=== PATIENT | male | born 1960 | race Caucasian/White ===

== ENCOUNTER → 2020-03-30 08:43 | Outpatient (CLI) | payer OTHER, SELFPAY ==
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
== END ==
PROVIDERS: Referring Provider Nurse Practitioner; Visit Provider Nurse Practitioner
DX: M79.641 Pain in right hand (principal); S62.316A Displaced fracture of base of fifth metacarpal bone, right hand, initial encounter for closed fracture; X58.XXXA Exposure to other specified factors, initial encounter
CPT/HCPCS: 73110; 73130

== ENCOUNTER → 2020-04-03 08:24 | Outpatient (CLI) | payer OTHER, SELFPAY ==
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
== END ==
PROVIDERS: Referring Provider Orthopaedic Surgery Foot and Ankle Surgery; Visit Provider Orthopaedic Surgery Foot and Ankle Surgery
DX: S62.316A Displaced fracture of base of fifth metacarpal bone, right hand, initial encounter for closed fracture (principal)
CPT/HCPCS: 73200

== ENCOUNTER → 2020-07-26 07:23 | Outpatient (CLI) | payer OTHER, SELFPAY ==
--- NOTE | 2020-07-26 | DI.MRI.S_ITS ---
PROCEDURE: MR CERVICAL SPINE WO CON INDICATIONS: Cervicalgia TECHNIQUE: Noncontrast sagittal T1 spin echo and T2 fast spin echo, sagittal STIR, foraminal oblique sagittal T2 fast spin echo, and axial gradient echo or T2 fast spin echo through the cervical spine. COMPARISON: None. FINDINGS: Image quality: Excellent. Alignment and Curvature: Grade 1 retrolisthesis of C3 on C4. Bone Marrow: Multilevel degenerative endplate sclerosis and spurring. Diffuse facet arthropathy. No acute fracture identified. Diffuse moderate cervical spondylosis with severe disc space narrowing at C3-C4. Spinal Cord: Visualized spinal cord has normal size and signal. No cerebellar tonsillar herniation. Paraspinous Soft Tissues: No paravertebral masses. Prevertebral soft tissues are normal in thickness. C2-C3: No canal narrowing. Mild right foraminal stenosis. Mild to moderate left foraminal narrowing. C3-C4: Moderate to severe canal stenosis. Severe bilateral foraminal stenoses with nerve root compression. C4-C5: Minimal canal narrowing. Mild bilateral foraminal stenoses. C5-C6: Minimal canal narrowing. Mild to moderate right foraminal stenosis. Mild left foraminal narrowing. C6-C7: No canal stenosis. Moderate foraminal stenosis with nerve root compression. Severe left foraminal stenosis with nerve root compression. C7-T1: Minimal canal narrowing. Severe bilateral foraminal stenosis with nerve root compression on both sides. IMPRESSION: Diffuse cervical spondylosis and facet arthropathy with moderate to severe canal narrowing at C3-C4. Numerous, bilateral foraminal stenoses as detailed above by spinal level Grade 1 retrolisthesis of C3 on C4. Dictated by: Zain Stone M.D. on 07/26/2020 at 9:53 Approved by: Zain Stone M.D. on 07/26/2020 at 10:05
== END ==
PROVIDERS: Referring Provider Orthopaedic Surgery Foot and Ankle Surgery; Visit Provider Orthopaedic Surgery Foot and Ankle Surgery
DX: M54.2 Cervicalgia (principal); M47.22 Other spondylosis with radiculopathy, cervical region; M48.02 Spinal stenosis, cervical region; M43.12 Spondylolisthesis, cervical region
CPT/HCPCS: 72141

== ENCOUNTER → 2022-07-12 06:44 | Outpatient (CLI) | payer OTHER, SELFPAY ==
--- NOTE | 2022-07-12 | DI.US.S_ITS ---
PROCEDURE: US PERIPH VENOUS LOW EXTREM RT INDICATIONS: Localized swelling, mass and lump,right lower limb TECHNIQUE: Real-time imaging, as well as color and pulse Doppler interrogation, were performed of the lower extremity deep veins from the inguinal ligament to the popliteal fossa. COMPARISON: None. FINDINGS: The common femoral, femoral and popliteal veins are normally compressible, and free of intraluminal thrombus. Color and pulse Doppler demonstrate normal phasic intraluminal flow. There is normal augmentation response to distal compression maneuver. No Liu's cyst is seen. 3.6 x 2.2 x 3.3 cm heterogeneously hypoechoic and solid appearing mass involving medial right knee is seen and show small amount of internal vascularity. 3.1 x 1.6 x 1.6 cm hypoechoic structure is seen in right upper thigh and show no definite internal vascularity. 2.5 x 1.3 x 1.4 cm hypoechoic and solid appearing structure is also seen in right upper thigh and show no definite internal vascularity. IMPRESSION: 1. No evidence of DVT in visualized right lower extremity veins. 2. 3 solid-appearing hypoechoic soft tissue masses are is noted in right upper thigh and right knee corresponding to patient's reported area of palpable lumps. Finding could represent benign or malignant soft tissue mass. These lesions are amenable to ultrasound-guided biopsy. 3. No bakers cyst. Dictated by: Yon Youngblood M.D. on 07/12/2022 at 8:53 Approved by: Yon Youngblood M.D. on 07/12/2022 at 9:01
== END ==
PROVIDERS: PCP Internal Medicine; Referring Provider Physician Assistant; Visit Provider Physician Assistant
DX: R22.41 Localized swelling, mass and lump, right lower limb (principal); M79.89 Other specified soft tissue disorders
CPT/HCPCS: 93971